=== PATIENT | male | born 1970 | race African-American/Black ===

== ENCOUNTER 2016-05-25 02:24 | Emergency (ER) | payer OTHER ==
[~2016-05-25] VITALS: Ht 175.3 cm; Wt 81.6 kg
[2016-05-25 02:35] VITALS: BP 133/82
--- NOTE | 2016-05-25 02:48 | ED INFLUENZA/URI COMPLAINT ---
History of Present Illness General Chief Complaint: Ear Complaints Stated Complaint: RIGHT EAR BLEEDING Source: patient Exam Limitations: no limitations Vital Signs & Intake/Output Vital Signs & Intake/Output Vital Signs Date Time Temp Pulse Resp B/P Pulse O2 O2 Flow FiO2 Ox Delivery Rate 05/25 0258 96 Room Air 05/25 0235 97.8 80 18 133/82 96 Room Air Allergies Coded Allergies: NO KNOWN ALLERGIES (03/02/13) Reconcile Medications Neomycin/Polymyxin B Sulf/Hc (Sjqiwuts-Fquqrntvc-Ey Ear Susp) 3.5 MG/ML-10,000 UNIT/ML-1 % DROPS.SUSP 4 GTT OT TID otitis externa X 7DAYS Triage Note: BLEEDING FROM RT EAR, NO PAIN Triage Nurses Notes Reviewed? yes Onset: Gradual Duration: hour(s): Timing: single episode today Severity: mild Prior Episodes/Possible Cause: no prior episodes Modifying Factors: Improves With: rest. Associated Symptoms: bleeding from right ear HPI: 46-year-old gentleman presents with bleeding from his right ear. He notes that yesterday afternoon he cleaned his ear out with a Q-tip. Early this morning he noted bleeding from his right ear. He states the bleeding has stopped. He has no ear pain whatsoever. He is able to hear without problem. He is otherwise well. Past History Travel History Traveled to [place] past 21 day No Medical History Any Pertinent Medical History? see below for history Neurological: NONE EENT: NONE Cardiovascular: NONE Respiratory: NONE Gastrointestinal: NONE Hepatic: NONE Renal: NONE Musculoskeletal: NONE Psychiatric: NONE Endocrine: NONE Blood Disorders: NONE Cancer(s): NONE Surgical History Surgical History: none Psychosocial History What is your primary language Malaysian Tobacco Use: Never used Family History Hx Contributory? No Review of Systems Review of Systems Constitutional: Reports: no symptoms. EENTM: Reports: no symptoms. Respiratory: Reports: no symptoms. Cardiovascular: Reports: no symptoms. GI: Reports: no symptoms. Genitourinary: Reports: no symptoms. Musculoskeletal: Reports: no symptoms. Skin: Reports: no symptoms. Neurological/Psychological: Reports: no symptoms. Hematologic/Endocrine: Reports: no symptoms. Immunologic/Allergic: Reports: no symptoms. All Other Systems: Reviewed and Negative Physical Exam Physical Exam General Appearance: well developed/nourished, no apparent distress Head: atraumatic, normal appearance Eyes: Bilateral: normal appearance. Ears, Nose, Throat: right ear canal was small amount of moist blood clot. There is no bleeding from the tympanic membrane is no sign of infection Neck: normal inspection, supple Respiratory: normal breath sounds Cardiovascular: regular rate/rhythm Gastrointestinal: normal bowel sounds, soft, non-tender Back: normal inspection Extremities: normal inspection Neurologic/Psych: no motor/sensory deficits, awake, alert, oriented x 3 Skin: intact, normal color, warm/dry Core Measures Severe Sepsis Present: No Septic Shock Present: No Progress Differential Diagnosis: abrasion versus infection versus other Plan of Care: See below Initial ED EKG: none Departure Departure Disposition: HOME OR SELF CARE Condition: Stable Clinical Impression Primary Impression: Abrasion of ear canal Referrals: SHAAN JAIN,STEPHANIE Estrada (PCP/Family) Departure Forms: Customer Survey General Discharge Information Prescriptions: Current Visit Scripts Neomycin/Polymyxin B Sulf/Hc (Dngjoipp-Ouiukyapk-Rq Ear Susp) 4 GTT OT TID #60 ML X 7DAYS Comments Patient has no active bleeding. Old clotted blood, small amount, is in the right ear canal. There is no sign of bleeding from the tympanic membrane. There is no sign of infection. I discussed this with him at length. I prescribed him Cortisporin to remove the dried blood. Encourage close follow-up with ENT especially if symptoms recur.
[2016-05-25] MEDS ORDERED: NEOMYCIN-POLYMY10 M1 OT (02:59)
== END 2016-05-25 03:08 ==
LOC: ERH 02:24
DX: S00.411A Abrasion of right ear, initial encounter (principal); X58.XXXA Exposure to other specified factors, initial encounter

== ENCOUNTER 2016-07-13 20:22 | Emergency (ER) | payer OTHER ==
[~2016-07-13] VITALS: Ht 175.3 cm; Wt 84.4 kg
[~2016-07-13 20:22] MED LIST: NEOMYCIN-POLYMY10 M1 OT
--- NOTE | 2016-07-13 20:31 | ED CARDIAC/CP/PALPITATIONS ---
History of Present Illness General Chief Complaint: General Adult Stated Complaint: PRSSURE IN CHEST AND NUMBNESS IN LEF ARM Source: patient Exam Limitations: no limitations Vital Signs & Intake/Output Vital Signs & Intake/Output Vital Signs Date Time Temp Pulse Resp B/P Pulse O2 O2 Flow FiO2 Ox Delivery Rate 07/14 0039 98.1 82 18 139/87 100 Room Air 07/13 2130 Room Air 07/14 2031 98.3 84 15 160/98 100 Room Air ED Intake and Output 07/14 0000 07/13 1200 Intake Total Output Total Balance Patient 186 lb Weight Allergies Coded Allergies: NO KNOWN ALLERGIES (03/02/13) Reconcile Medications Aspirin (Ecotrin*) 81 MG TABLET. 1 TAB PO ONCE HEART/BLOOD (Reported) Triage Nurses Notes Reviewed? yes Onset: Gradual Duration: week(s): Timing: recent history Location: central, shoulder Radiation: no radiation Activities at Onset: none Modifying Factors: Worsens With: movement, palpation. Associated Symptoms: CHEST PAIN HPI: 46-year-old gentleman in prior good health presents with left upper chest pain and numbness in the shoulder and occasional numbness in distal fingers. He notes that he has had these symptoms on and off for the past several years. He has had a prior workup in the emergency department has been negative. He states that his most present episode has been going on for the past 1-2 days. He has no diaphoresis, syncopal type symptoms, numbness or tingling, dyspnea. He is not presently taking any medicine to ameliorate these symptoms. He is otherwise well. Past History Travel History Traveled to [place] past 21 day No Medical History Any Pertinent Medical History? see below for history Neurological: NONE EENT: NONE Cardiovascular: NONE Respiratory: NONE Gastrointestinal: NONE Hepatic: NONE Renal: NONE Musculoskeletal: NONE Psychiatric: NONE Endocrine: NONE Blood Disorders: NONE Cancer(s): NONE Surgical History Surgical History: none Psychosocial History What is your primary language Malaysian Family History Hx Contributory? No Review of Systems Review of Systems Constitutional: Reports: no symptoms. EENTM: Reports: no symptoms. Respiratory: Reports: no symptoms. Cardiovascular: Reports: no symptoms. GI: Reports: no symptoms. Genitourinary: Reports: no symptoms. Musculoskeletal: Reports: no symptoms. Skin: Reports: no symptoms. Neurological/Psychological: Reports: no symptoms. Hematologic/Endocrine: Reports: no symptoms. Immunologic/Allergic: Reports: no symptoms. All Other Systems: Reviewed and Negative Physical Exam Physical Exam General Appearance: well developed/nourished, no apparent distress, comfortable Head: atraumatic, normal appearance Eyes: Bilateral: normal appearance. Ears, Nose, Throat: normal pharynx Neck: normal inspection, supple, full range of motion Respiratory: normal breath sounds, chest non-tender, no respiratory distress, quiet respiration, lungs clear Cardiovascular: regular rate/rhythm, normal peripheral pulses Gastrointestinal: normal bowel sounds, soft, non-tender, no organomegaly Back: normal inspection, normal range of motion Extremities: normal inspection, normal capillary refill, normal range of motion, no edema Neurologic/Psych: no motor/sensory deficits, awake, alert, oriented x 3 Skin: intact, normal color, warm/dry Core Measures ACS in differential dx? No Severe Sepsis Present: No Septic Shock Present: No Progress Differential Diagnosis: AMI, musculoskeletal pain, pulmonary embolism Plan of Care: Orders Procedure Date/time Status TROPONIN LEVEL 07/13 2329 Complete EKG 07/13 2329 Active TROPONIN LEVEL 07/13 2030 Complete D-DIMER 07/13 2030 Complete COMPREHENSIVE METABOLIC PANEL 07/13 2030 Complete CBC WITHOUT DIFFERENTIAL 07/13 2030 Complete EKG 07/13 2022 Active Laboratory Tests 07/13/162336: Troponin I < 0.01 07/13/162035: Anion Gap 10, Estimated GFR 59 L, BUN/Creatinine Ratio 12.3, Glucose 99, Calcium 9.6, Total Bilirubin 0.5, AST 33, ALT 65, Alkaline Phosphatase 87, Troponin I 0.01, Total Protein 7.8, Albumin 4.5, Globulin 3.3, Albumin/Globulin Ratio 1.4, D-Dimer < 200, CBC w Diff NO MAN DIFF REQ, RBC 5.17, MCV 85.1, MCH 28.7, RDW 13.4, MPV 9.5, Gran % 63.9, Lymphocytes % 25.9, Monocytes % 9.1, Eosinophils % 0.7, Basophils % 0.4, Absolute Granulocytes 4.6, Absolute Lymphocytes 1.9, Absolute Monocytes 0.7 H, Absolute Eosinophils 0.1, Absolute Basophils 0, PUBS MCHC 33.7 Diagnostic Imaging: Viewed by Me: Radiology Read. Discussed w/RAD: Radiology Read. CXR Impression: no acute abnormality, no infiltrates, normal size heart, normal mediastinum Initial ED EKG: normal axis, normal intervals, normal p-waves, normal QRS complex, normal sinus rhythm Repeat EKG: unchanged Comments: PATIENT: BELEN SIMS PRESENT AGE: 46 PATIENT ACCOUNT NO: [id number] : 69 LOCATION: [facility] ([place]) ORDERING PHYSICIAN: ANDREINA MÉNDEZ MD SERVICE DATE: 07/13/16 EXAM TYPE: RAD - XRY-PORTABLE CHEST XRAY EXAMINATION: CHEST 1 VIEW CLINICAL INFORMATION: Chest pain. COMPARISON: 03/02/2013. TECHNIQUE: An AP view of the chest is provided. FINDINGS: The cardiac silhouette is not enlarged. The mediastinal and hilar contours are unremarkable. There are neither pleural effusions nor pneumothoraces. There are no consolidations. The osseous structures are unremarkable. IMPRESSION: No evidence for acute disease. 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 <Electronically signed in Other Vendor System> SIGNED BY: MAGDA GODINEZ MD 07/13/162122 Departure Departure Disposition: HOME OR SELF CARE Condition: Stable Clinical Impression Primary Impression: Chest pain Referrals: SHAAN JAIN,STEPHANIE Estrada (PCP/Family) Departure Forms: Customer Survey General Discharge Information Comments trop neg x 2. ekg benign x2... chest pain free in ED... pt safe for discharge and will follow up with PMD and also was referred to cards. Critical Care Note Critical Care Note Critical Care Time: non-applicable
[2016-07-13 20:54] LABS: ABSOLUTE BASOPHIL COUNT 0 /CUMM (0.0-0.2); ABSOLUTE EOSINOPHIL COUNT 0.1 /CUMM (0.0-0.7); ABSOLUTE GRANULOCYTE CT 4.6 /CUMM (1.4-6.5); ABSOLUTE LYMPH COUNT 1.9 /CUMM (1.2-3.4); ABSOLUTE MONOCYTE COUNT 0.7 /CUMM (0.10-0.60); BASOPHIL % 0.4 % (0.0-2.0); EOSINOPHIL % 0.7 % (0-5); GRANULOCYTE % 63.9 % (42.2-75.2); MEAN CORPUSCULAR HGB 28.7 PG (27.0-31.0); MEAN CORPUSCULAR HGB CONC 33.7 G/DL (33.0-37.0); MEAN CORPUSCULAR VOLUME 85.1 FL (80.0-94.0); MEAN PLATELET VOLUME 9.5 FL (7.4-10.4); PLATELET COUNT 177 /CUMM (130-400); RBC DISTRIBUTION WIDTH 13.4 % (11.5-14.5); RED BLOOD CELL CT 5.17 /CUMM (4.70-6.10); WHITE BLOOD CELL COUNT 7.3 /CUMM (4.8-10.8)
[2016-07-13] MEDS ORDERED: ASPIRIN EC81 M1 PO (21:08)
--- NOTE | 2016-07-13 21:23 | RADIOLOGY REPORT ---
EXAMINATION: CHEST 1 VIEW CLINICAL INFORMATION: Chest pain. COMPARISON: 03/02/2013. TECHNIQUE: An AP view of the chest is provided. FINDINGS: The cardiac silhouette is not enlarged. The mediastinal and hilar contours are unremarkable. There are neither pleural effusions nor pneumothoraces. There are no consolidations. The osseous structures are unremarkable. IMPRESSION: No evidence for acute disease.
[2016-07-14 00:39] VITALS: BP 139/87
== END 2016-07-14 00:40 ==
LOC: ERH 20:22
PROVIDERS: Pediatrics
DX: R07.89 Other chest pain (principal)
CPT/HCPCS: 93005; 93010